=== PATIENT | male | born 1990 | race Caucasian/White ===

== ENCOUNTER 2016-04-21 01:39 | Emergency (ER) | payer OTHER ==
[~2016-04-21 01:39] MED LIST: ATV/1 PO; ESCI1TAB9 PO; LISD20CA PO
[2016-04-21 02:01] VITALS: TEMP 36.8; O2SAT 95
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
[2016-04-21 07:05] VITALS: BP 106/52; PULSE 83; O2SAT 95
== END 2016-04-21 07:15 | disposition home or self-care (01) ==
LOC: EDBD 01:39 → C.EDB 01:42
DX: F10.120 Alcohol abuse with intoxication, uncomplicated (principal)